=== PATIENT | female | born 1965 | race Caucasian/White ===

== ENCOUNTER → 2020-04-03 14:43 | Outpatient (BNVA) | payer BC, SELFPAY | PROVIDERS: Family Provider Physician Assistant Medical; PCP Internal Medicine; Visit Provider Dermatology | DX: L72.0 Epidermal cyst (principal); D22.9 Melanocytic nevi, unspecified; L73.8 Other specified follicular disorders; Z12.83 Encounter for screening for malignant neoplasm of skin | CPT/HCPCS: 10040; 99203 ==